=== PATIENT | female | born 1950 | race Caucasian/White ===

== ENCOUNTER → 2016-07-19 | Outpatient (CLI) | payer MEDICARE ==
--- NOTE | 2016-07-20 20:24 | Diagnostic Imaging Report ---
Bilateral screening mammogram The current study was also evaluated with a Computer Aided Detection (CAD) system. Indication: Screening. No current complaints stated on the questionnaire. COMPARISON: 06/15/15 FINDINGS: The breasts are composed of scattered fibroglandular densities. Scattered benign-appearing calcifications are seen. Allowing for technique and positional differences, no suspicious change is seen. IMPRESSION: No significant change. ACR BI-RADS Category 2: Benign findings. Result letter will be mailed to the patient. Note: At least 10% of breast cancer is not imaged by mammography. Dictated on workstation # [id number]
== END ==
LOC: RAD 13:00
PROVIDERS: ATTEND Obstetrics & Gynecology
DX: Z12.31 Encounter for screening mammogram for malignant neoplasm of breast (principal)
CPT/HCPCS: 77067

== ENCOUNTER 2017-07-15 13:26 | Outpatient (RCR) | payer MEDICARE | END 2017-07-15 14:13 | disposition home or self-care (01) | PROVIDERS: ATTEND Obstetrics & Gynecology | DX: M25.551 Pain in right hip (principal); M25.552 Pain in left hip; M79.1 Myalgia ==

== ENCOUNTER → 2017-08-19 | Outpatient (CLI) | payer MEDICARE ==
--- NOTE | 2017-08-19 12:19 | Diagnostic Imaging Report ---
INDICATION: Routine screening. COMPARISON: 07/19/2016 and 06/15/2015. TECHNIQUE: 2D and 3D bilateral screening mammography was performed with CAD. FINDINGS: Scattered fibroglandular densities are identified bilaterally. The parenchymal pattern is stable. No mass or malignant appearing microcalcifications are seen. The axillae are unremarkable. IMPRESSION: No mammographic features suspicious for malignancy are identified. ACR BI-RADS Category 1: Negative. Result letter will be mailed to the patient. Note: At least 10% of breast cancer is not imaged by mammography. Dictated by: Dictated on workstation # [id number]
== END ==
LOC: RAD 09:13
PROVIDERS: ATTEND Obstetrics & Gynecology
DX: Z12.31 Encounter for screening mammogram for malignant neoplasm of breast (principal)
CPT/HCPCS: 77067

== ENCOUNTER → 2019-12-30 | Outpatient (CLI) | payer MEDICARE ==
[2019-12-30 15:43] LABS: HEMOGLOBIN 12.7 g/dL (11.5-16.0); MEAN PLATELET VOLUME 10.1 fL (9.0-12.2); WHITE BLOOD COUNT 11.7 10^3/uL (4.3-11.0)
[2019-12-30 16:03] LABS: ALBUMIN 4.3 GM/DL (3.2-4.5); BILIRUBIN,TOTAL 0.6 MG/DL (0.1-1.0); CALCIUM 9.3 MG/DL (8.5-10.1); CREATININE SERUM 0.99 MG/DL (0.60-1.30); POTASSIUM 4.2 MMOL/L (3.6-5.0); TOTAL PROTEIN 7.2 GM/DL (6.4-8.2)
--- NOTE | 2019-12-30 16:03 | Diagnostic Imaging Report ---
PROCEDURE: CT urinary tract, rule out kidney stone. TECHNIQUE: Multiple contiguous axial images were obtained through the abdomen and pelvis without the use of intravenous contrast. Auto Exposure Controls were utilized during the CT exam to meet ALARA standards for radiation dose reduction. INDICATION: Right flank pain and hematuria. COMPARISON: There is no previous study for comparison. FINDINGS: Subcentimeter calcification in subpleural aspect of left lower lobe is likely related to previous granulomatous exposure. Unenhanced images of the liver reveal no focal abnormality. Gallbladder is surgically absent. There is mild hiatal hernia present. Calcified granulomas are seen in the spleen. No pancreatic or adrenal gland lesion is detected. Evaluation of kidneys is limited without intravenous contrast, however no hydronephrosis or calculus is seen. There is an approximately 6.6 cm exophytic cyst in the lower pole of the right kidney. No ureteric stone or dilatation is identified. There is no evidence of free fluid within the abdomen or pelvis. Unopacified bladder is unremarkable. Uterus is deviated to the right but otherwise unremarkable. There is no evidence of organized fluid collection. Lower lumbar degenerative findings are present with mild diffuse hip osteoarthritis. There is fatty structure within the upper right thigh which may represent gluteal lipoma, although this is incompletely included on this exam. IMPRESSION: No definite acute abnormality seen within the abdomen or pelvis. In particular, there is no evidence of obstructive uropathy, although the right kidney does demonstrate an approximately 6.6 cm cyst. There is mild hiatal hernia noted. Dictated by: Dictated on workstation # [id number]
== END ==
LOC: RAD 15:25
PROVIDERS: ATTEND Physician Assistant
DX: N39.0 Urinary tract infection, site not specified (principal); K44.9 Diaphragmatic hernia without obstruction or gangrene
CPT/HCPCS: 36415; 74176; 80053; 85027

== ENCOUNTER → 2020-05-06 | Outpatient (CLI) | payer MEDICARE ==
--- NOTE | 2020-05-09 08:32 | Diagnostic Imaging Report ---
Indication: Routine screening. Comparison is made prior mammogram 08/25/2018 and 08/19/2017. 2-D and 3-D bilateral screening mammography was performed with CAD. Scattered fibroglandular densities are identified bilaterally. The peripheral pattern is stable. No mass or malignant appearing microcalcifications are seen. Axillae are unremarkable. IMPRESSION: BI-RADS Category 1 No mammographic features suspicious for malignancy are identified. ACR BI-RADS Category 1: Negative. Result letter will be mailed to the patient. Note: At least 10% of breast cancer is not imaged by mammography. Dictated by: Dictated on workstation # [id number]
== END ==
LOC: RAD 14:31
PROVIDERS: ATTEND Internal Medicine
DX: Z12.31 Encounter for screening mammogram for malignant neoplasm of breast (principal)
CPT/HCPCS: 77063; 77067

== ENCOUNTER → 2020-11-10 | Outpatient (CLI) | payer MEDICARE ==
--- NOTE | 2020-11-10 14:24 | Diagnostic Imaging Report ---
PROCEDURE: US Renal Bilateral. TECHNIQUE: Multiple real-time grayscale images were obtained over the kidneys in various projections bilaterally. INDICATION: Right renal cyst, follow-up. Comparison is made with CT exam from 12/30/2019. Right kidney measures 12.4 x 5.0 x 5.7 cm and the left kidney measures 10.1 x 6.4 x 5.5 cm. There is a cyst in the right kidney measuring 6.2 x 5.5 x 5.5 cm. There are some thin internal septations. No nodularity is seen. No abnormal vascularity is detected. Left kidney is unremarkable. There is no calculi or hydronephrosis. IMPRESSION: Septated right renal cyst, stable in size when compared with CT study from 12/30/2019. Continued follow-up is recommended. Dictated by: Dictated on workstation # [id number]
== END ==
LOC: RAD 12:43
PROVIDERS: ATTEND Nurse Practitioner Family
DX: N28.1 Cyst of kidney, acquired (principal)
CPT/HCPCS: 76770

== ENCOUNTER → 2021-05-31 | Outpatient (CLI) | payer MEDICARE ==
--- NOTE | 2021-05-31 12:20 | Diagnostic Imaging Report ---
INDICATION: Routine screening. COMPARISON: 05/06/2020 and 08/25/2018. TECHNIQUE: 2D and 3D bilateral screening mammography was performed with CAD. FINDINGS: Both breasts are heterogeneously dense, limiting the sensitivity of mammography. The parenchymal pattern is stable. No mass or malignant-appearing microcalcifications are seen. The axillae are unremarkable. IMPRESSION: No mammographic features suspicious for malignancy are identified. ACR BI-RADS Category 1: Negative. Result letter will be mailed to the patient. Note: At least 10% of breast cancer is not imaged by mammography. Dictated by: Dictated on workstation # [id number]
== END ==
LOC: RAD 11:15
PROVIDERS: ATTEND Internal Medicine
DX: Z12.31 Encounter for screening mammogram for malignant neoplasm of breast (principal)
CPT/HCPCS: 77063; 77067

== ENCOUNTER → 2021-07-14 | Outpatient (CLI) | payer MEDICARE ==
[2021-07-14 09:17] LABS: BASOPHILS # (AUTO) 0.1 10^3/uL (0.0-0.1); BASOPHILS % (AUTO) 1 % (0-10); EOSINOPHILS # (AUTO) 0.1 10^3/uL (0.0-0.3); EOSINOPHILS % (AUTO) 2 % (0-10); HEMATOCRIT 40 % (35-52); HEMOGLOBIN 13.3 g/dL (11.5-16.0); LYMPHOCYTES # (AUTO) 2.9 10^3/uL (1.0-4.0); LYMPHOCYTES % (AUTO) 46 % (12-44); MEAN CORPUSCULAR HEMOGLOBIN 31 pg (25-34); MEAN CORPUSCULAR HGB CONC 33 g/dL (32-36); MEAN CORPUSCULAR VOLUME 94 fL (80-99); MEAN PLATELET VOLUME 9.9 fL (9.0-12.2); MONOCYTES # (AUTO) 0.5 10^3/uL (0.0-1.0); MONOCYTES % (AUTO) 7 % (0-12); NEUTROPHILS # (AUTO) 2.7 10^3/uL (1.8-7.8); NEUTROPHILS % (AUTO) 44 % (42-75); PLATELET COUNT 264 10^3/uL (130-400); WHITE BLOOD COUNT 6.2 10^3/uL (4.3-11.0)
[2021-07-14 09:41] LABS: ALANINE AMINOTRANSFERASE 11 U/L (0-55); ALBUMIN 4.2 GM/DL (3.2-4.5); ALKALINE PHOSPHATASE 68 U/L (40-136); BILIRUBIN,TOTAL 0.6 MG/DL (0.1-1.0); BUN/CREATININE RATIO 15; CALCIUM 9.3 MG/DL (8.5-10.1); CARBON DIOXIDE 23 MMOL/L (21-32); CHLORIDE 105 MMOL/L (98-107); CREATININE SERUM 0.86 MG/DL (0.60-1.30); GFR ESTIMATED 71; GLUCOSE 72 MG/DL (70-105); POTASSIUM 3.9 MMOL/L (3.6-5.0); SODIUM 143 MMOL/L (135-145)
== END ==
LOC: CARD 09:30
PROVIDERS: ATTEND Nurse Practitioner Family
DX: R53.83 Other fatigue (principal); M79.10 Myalgia, unspecified site; R61 Generalized hyperhidrosis
CPT/HCPCS: 36415; 80053; 84484; 85025; 93005

== ENCOUNTER 2022-04-22 15:22 | Emergency (ER) | payer MEDICARE ==
[~2022-04-22] VITALS: Ht 167.7 cm; Wt 70.3 kg
[2022-04-22 15:46] LABS: BILIRUBIN,URINE NEGATIVE (NEGATIVE); CLARITY,URINE CLEAR; COLOR,URINE YELLOW; GLUCOSE, URINE (UA) NEGATIVE (NEGATIVE); KETONES,URINE NEGATIVE (NEGATIVE); LEUKOCYTE ESTERASE ,URINE NEGATIVE (NEGATIVE); NITRITE,URINE NEGATIVE (NEGATIVE); PROTEIN,URINE NEGATIVE (NEGATIVE)
[2022-04-22 16:00] LABS: BACTERIA,URINE NEGATIVE /HPF; RBC,URINE 0-2 /HPF; WBC,URINE 0-2 /HPF
--- NOTE | 2022-04-22 16:06 | ED GU-Female ---
General Chief Complaint: - Reproductive Stated Complaint: UTI SYMPTOMS Nursing Triage Note: PT AMB TO RN 3 WITH CC OF FOUL SMELLING URINE, R LOWER BACK PAIN AND FEVER. PT STATES HAS HAD SX X4 WEEKS. PT REPORTS WAS SEEN AT [facility] YESTERDAY AND GIVEN AN ANTIBIOTIC. Source: patient Exam Limitations: no limitations (JUANY BROWN) History of Present Illness Date Seen by Provider: Apr 22, 2022 Time Seen by Provider: 16:03 Initial Comments Patient is a 72-year-old female presents ED with urinary symptoms, right lower back pain and fever. She states symptoms started with a sharp pain in her right lower back 4 weeks ago. Denies of any trauma. Noted some increased urine patricia quency but has been noticing a strong odor in her urine. She states she has been having intermittent fevers. She states 2 weeks ago she did vomit but that has improved. She has been drinking prune juice. History of frequent urinary tract infections. She states she went to [facility] yesterday secondary to continue urinary symptoms with chills and shaking yesterday and was diagnosed with UTI. She was placed on Macrobid. She took 3 doses of Macrobid. She states patient chills and shaking has improved. Continue fever. Febrile on arrival. She has been taken Tylenol. she is concerned for a kidney infection. Denies of any cough, chest pain, shortness of breath. She states she was placed on a antibiotic around April 07 for a dental infection. (JUANY BROWN) Allergies and Home Medications Allergies Coded Allergies: Sulfa (Sulfonamide Antibiotics) (Verified Allergy, Unknown, 04/22/22) Patient Home Medication List Home Medication List Reviewed: Yes (JATIN BUTTS MD) Review of Systems Review of Systems Constitutional: chills, malaise, weakness EENTM: No ear pain, No double vision Respiratory: No cough, No dyspnea on exertion Cardiovascular: No chest pain Gastrointestinal: No abdominal pain, No diarrhea, No nausea; vomiting Genitourinary: denies discharge; flank pain, other (odor) Musculoskeletal: back pain; No joint pain Skin: No change in color, No change in hair/nails (JUANY BROWN) All Other Systemes Reviewed Negative Unless Noted: Yes (JUANY BROWN) Past Mbhxcdv-[id number]-Jroiud Hx Patient Social History Tobacco Use?: No Substance use?: No Alcohol Use?: No Pt feels they are or have been: No (JUANY BROWN) Immunizations Up To Date Influenza Vaccine Up-to-Date: Yes; Up-to-Date (JUANY BROWN) Past Medical History Reproductive Disorders: No (JUANY BROWN) Physical Exam Vital Signs Vital Signs - First Documented 04/22/22 15:29 Temp 38.1 Pulse 102 Resp 20 B/P (MAP) 145/79 (101) Pulse Ox 99 O2 Delivery Room Air (JATIN BUTTS MD) Vital Signs Capillary Refill : Less Than 3 Seconds (JUANY BROWN) Height, Weight, BMI Height: '" Weight: lbs. oz. 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, no motor/sensory deficits, alert, normal mood/affect, oriented x 3 Skin: normal color, warm/dry (JUANY BROWN) Progress/Results/Core Measures Suspected Sepsis SIRS Temperature: Pulse: 102 Respiratory Rate: 20 Laboratory Tests 04/22/22 16:05: White Blood Count 7.2 Blood Pressure 145 /79 Mean: 101 Laboratory Tests 04/22/22 16:05: Creatinine 1.02, Platelet Count 252, Total Bilirubin 0.4 (JUANY BROWN) Results/Orders Lab Results Laboratory Tests Test 04/22/22 15:30 04/22/22 16:05 Range/Units Urine Color YELLOW Urine Clarity CLEAR Urine pH 6.0 5-9 Urine Specific [place] <=1.005 1.016-1.022 Urine Protein NEGATIVE NEGATIVE Urine Glucose (UA) NEGATIVE NEGATIVE Urine Ketones NEGATIVE NEGATIVE Urine Nitrite NEGATIVE NEGATIVE Urine Bilirubin NEGATIVE NEGATIVE Urine Urobilinogen 0.2 < = 1.0 MG/DL Urine Leukocyte Esterase NEGATIVE NEGATIVE Urine RBC (Auto) 1+ H NEGATIVE Urine RBC 0-2 /HPF Urine WBC 0-2 /HPF Urine Squamous Epithelial Cells 2-5 /HPF Urine Crystals NONE /LPF Urine Bacteria NEGATIVE /HPF Urine Casts NONE /LPF Urine Mucus NEGATIVE /LPF Urine Culture Indicated NO White Blood Count 7.2 4.3-11.0 10^3/uL Red Blood Count 4.00 3.80-5.11 10^6/uL Hemoglobin 12.3 11.5-16.0 g/dL Hematocrit 37 35-52 % Mean Corpuscular Volume 92 80-99 fL Mean Corpuscular Hemoglobin 31 25-34 pg Mean Corpuscular Hemoglobin Concent 34 32-36 g/dL Red Cell Distribution Width 12.8 10.0-14.5 % Platelet Count 252 130-400 10^3/uL Mean Platelet Volume 10.0 9.0-12.2 fL Immature Granulocyte % (Auto) 0 % Neutrophils (%) (Auto) 70 42-75 % Lymphocytes (%) (Auto) 20 12-44 % Monocytes (%) (Auto) 9 0-12 % Eosinophils (%) (Auto) 0 0-10 % Basophils (%) (Auto) 1 0-10 % Neutrophils # (Auto) 5.0 1.8-7.8 10^3/uL Lymphocytes # (Auto) 1.4 1.0-4.0 10^3/uL Monocytes # (Auto) 0.7 0.0-1.0 10^3/uL Eosinophils # (Auto) 0.0 0.0-0.3 10^3/uL Basophils # (Auto) 0.1 0.0-0.1 10^3/uL Immature Granulocyte # (Auto) 0.0 0.0-0.1 10^3/uL Sodium Level 137 135-145 MMOL/L Potassium Level 4.3 3.6-5.0 MMOL/L Chloride Level 104 98-107 MMOL/L Carbon Dioxide Level 22 21-32 MMOL/L Anion Gap 11 5-14 MMOL/L Blood Urea Nitrogen 12 7-18 MG/DL Creatinine 1.02 0.60-1.30 MG/DL Estimat Glomerular Filtration Rate 58 BUN/Creatinine Ratio 12 Glucose Level 114 H 70-105 MG/DL Calcium Level 8.8 8.5-10.1 MG/DL Corrected Calcium 8.7 8.5-10.1 MG/DL Total Bilirubin 0.4 0.1-1.0 MG/DL Aspartate Amino Transf (AST/SGOT) 26 5-34 U/L Alanine Aminotransferase (ALT/SGPT) 33 0-55 U/L Alkaline Phosphatase 86 40-136 U/L Total Protein 7.2 6.4-8.2 GM/DL Albumin 4.1 3.2-4.5 GM/DL Lipase 29 8-78 U/L (JATIN BUTTS MD) Medications Given in ED (JATIN BUTTS MD) Vital Signs/I&O (JATIN BUTTS MD) Vital Signs/I&O Capillary Refill : Less Than 3 Seconds (JUANY BROWN) Blood Pressure Mean: 101 Departure Communication (PCP) Patient was slightly tachycardic and febrile. Due to continued urinary symptoms lab work was ordered. Patient lab work was reassuring. Her urine did show hematuria without evidence of infection. She was placed on Macrobid yesterday secondary to UTI. She was seen at [facility]. She reports increased urine frequency with odor. History of frequent urinary tract infections. Due to the hematuria CT abdomen and pelvis was ordered to rule out nephrolithiasis. CT abdomen pelvis shows distended bladder with some mild bilateral hydroureter. No evidence of stone. No perinephric stranding. Due to the reassuring lab work with normal urinalysis, we will continue with the M acrobid as her urine appears to be improving. Patient fever improved after motrin. She was given a liter of fluid. She does not appear toxic or septic. If worsening symptoms such as fever, increased urine frequency, pain to return back to ED for further evaluation. Recheck with urinalysis in 5 days with primary care physician. May need to switch antibiotics if urinary symptoms continue or symptoms worsen. She has no COVID-like symptoms such as cough, runny nose. she did have shakes and chills yesterday. Patient is recommended continue Tylenol and ibuprofen. Return precaution were discussed. (JUANY BROWN) Impression Primary Impression: Hematuria Additional Impression: Fever Disposition: 01 HOME, SELF-CARE Condition: Stable Departure-Patient Inst. Decision time for Depature: 18:55 (JUANY BROWN) Referrals: NISHA GARZA MD (PCP/Family) Primary Care Physician Patient Instructions: Blood in the Urine (Hematuria), Adult (DC) Add. Discharge Instructions: Continue with Macrobid. If any worsening symptoms such as body aches fatigue continued fever continue pain to return back to ED for further evaluation All discharge instructions reviewed with patient and/or family. Voiced understanding. ATTENDING PHYSICIAN NOTE: I was physically present as attending physician in the emergency department during the care of this patient, but I was not directly involved in the decision making or delivery of care for this patient. (JATIN BUTTS MD) JUANY BROWN Apr 22, 2022 16:06 JATIN BUTTS MD Apr 22, 2022 20:55
[2022-04-22 16:12] LABS: BASOPHILS # (AUTO) 0.1 10^3/uL (0.0-0.1); BASOPHILS % (AUTO) 1 % (0-10); EOSINOPHILS % (AUTO) 0 % (0-10); HEMATOCRIT 37 % (35-52); HEMOGLOBIN 12.3 g/dL (11.5-16.0); LYMPHOCYTES # (AUTO) 1.4 10^3/uL (1.0-4.0); LYMPHOCYTES % (AUTO) 20 % (12-44); MEAN CORPUSCULAR HEMOGLOBIN 31 pg (25-34); MEAN CORPUSCULAR HGB CONC 34 g/dL (32-36); MEAN CORPUSCULAR VOLUME 92 fL (80-99); MONOCYTES # (AUTO) 0.7 10^3/uL (0.0-1.0); MONOCYTES % (AUTO) 9 % (0-12); NEUTROPHILS % (AUTO) 70 % (42-75); PLATELET COUNT 252 10^3/uL (130-400); WHITE BLOOD COUNT 7.2 10^3/uL (4.3-11.0)
[2022-04-22] MEDS ORDERED: NS IV 1000 ML 1,000 ML IV STA (16:17)
[2022-04-22 16:27] LABS: ALBUMIN 4.1 GM/DL (3.2-4.5); POTASSIUM 4.3 MMOL/L (3.6-5.0)
[2022-04-22 16:28] LABS: CALCIUM 8.8 MG/DL (8.5-10.1)
[2022-04-22 16:29] LABS: TOTAL PROTEIN 7.2 GM/DL (6.4-8.2)
[2022-04-22 16:31] LABS: BILIRUBIN,TOTAL 0.4 MG/DL (0.1-1.0)
[2022-04-22 16:33] LABS: CREATININE SERUM 1.02 MG/DL (0.60-1.30)
--- NOTE | 2022-04-22 16:50 | Diagnostic Imaging Report ---
PROCEDURE: CT abdomen and pelvis without contrast. TECHNIQUE: Multiple contiguous axial images were obtained through the abdomen and pelvis without the use of intravenous contrast. Auto Exposure Controls were utilized during the CT exam to meet ALARA standards for radiation dose reduction. INDICATION: Right flank pain. COMPARISON: 12/22/2019. FINDINGS: Calcified granuloma within the left lower lobe. Otherwise, the visualized lung bases are clear. Small hiatal hernia. Cholecystectomy. The unenhanced liver is unremarkable. Calcified splenic granuloma. Otherwise, the spleen is unremarkable. The adrenal glands are unremarkable. The pancreas is unremarkable. Large hypodensity within the right kidney is again identified measuring greater than 6 cm. This has not significantly changed since 2020. Mild bilateral hydroureter with prominence of bilateral renal pelves, increased since the prior examination. No obstructing calculus seen. The left kidney is otherwise unremarkable. No aneurysmal dilatation of the abdominal aorta. The urinary bladder is distended. The urinary bladder is otherwise unremarkable. The uterus and adnexal structures are unremarkable for age. Lipoma within the right gluteal musculature. Mild colonic diverticulosis without CT evidence of diverticulitis. No bowel obstruction or pneumatosis. No significant adenopathy, free air or free fluid within the abdomen or pelvis. Significant scattered osseous degenerative changes. Transitional lumbosacral vertebral body. Minimal apex left curvature of the lumbar spine. No acute osseous abnormality. IMPRESSION: Mild bilateral hydroureter with prominence of the renal pelves. No definite obstructing renal or ureteral calculus is seen. This may be secondary to the urinary bladder being mildly distended. Small hiatal hernia. Evidence of chronic granulomatous disease. Additional findings as above. Dictated by: Dictated on workstation # [id number]
[2022-04-22] MEDS ORDERED: cefTRIAXone 1 GM PRE-MIX 50 ML IV STA (17:09)
[2022-04-22] MEDS ORDERED: ACETAMINOPHEN 325 MG TABLET PO ONE (17:15)
[2022-04-22] MEDS ORDERED: cefTRIAXone 1 GM PRE-MIX 50 ML IV ONE (17:18)
[2022-04-22] MEDS ORDERED: ACETAMINOPHEN 325 MG TABLET ONE (17:18)
[2022-04-22] MEDS ORDERED: IBUPROFEN 600 MG (MOTRIN) TAB PO ONE (18:15)
[2022-04-22 19:00] VITALS: BP 120/74
== END 2022-04-22 19:00 | disposition home or self-care (01) ==
LOC: EDUNIT# 15:22 → ER 15:23
DX: N13.4 Hydroureter (principal); R31.9 Hematuria, unspecified; N39.0 Urinary tract infection, site not specified; Z79.2 Long term (current) use of antibiotics
CPT/HCPCS: 36415; 74176; 80053; 81000; 83690; 85025